=== PATIENT | female | born 1995 | race Caucasian/White ===

== ENCOUNTER 2017-04-10 02:35 | Inpatient (IN) | payer MEDICAID ==
[~2017-04-10] VITALS: Ht 162.6 cm; Wt 86.0 kg
[2017-04-10] VITALS (30 sets, daily range): BP systolic 92–124; BP diastolic 43–79; PULSE 65–114; RESP 18; TEMP 97.7–98.4; O2SAT 99–100
[~2017-04-10 02:35] MED LIST: IBUP600 PO; PERI8.6T PO; [UNRECOGNIZED DRUG - OTHER] PO
[2017-04-10] MEDS ORDERED: PREN1TAB30 PO (03:07)
[2017-04-10] MEDS: LACTATED RINGER'S 1000 ML INJ 1,000 ML IV SCH ×2 (03:18→04:25)
[2017-04-10] MEDS ORDERED: LACTATED RINGER'S 1000 ML INJ 1,000 ML IV PRN (03:20)
[2017-04-10] MEDS ORDERED: MINERAL OIL 10 ML VIAL TOPICAL PRN (03:30)
[2017-04-10] MEDS ORDERED: LIDOCAINE HCL 1% 50 ML VIAL I-DERMAL PRN (03:30)
[2017-04-10] MEDS ORDERED: OXYTOCIN 30 UNITS-500ML PREMIX 500 ML IV ONE (03:30)
[2017-04-10] MEDS ORDERED: CITRIC ACID-SODIUM CITRATE LIQ 30 ML UDC PO SCH (03:30)
[2017-04-10] MEDS ORDERED: SODIUM CHLORID 0.9% 500 ML INJ 500 ML IV PRN (03:30)
[2017-04-10] MEDS ORDERED: LIDOCAINE HCL 1% 50 ML VIAL INFIL PRN (03:30)
[2017-04-10 03:31] LABS: AUTOMATED NEUTROPHIL # 8.2 TH/MM3 (1.8-7.7); BASOPHIL % 0.4 % (0.0-2.0); EOSINOPHIL # 0.2 TH/MM3 (0-0.4); EOSINOPHIL % 1.8 % (0.0-4.0); HEMATOCRIT 28.4 % (35.0-46.0); HEMO FLAGS DIFF FINAL; LYMPH % 16.6 % (9.0-44.0); LYMPHOCYTE # 1.8 TH/MM3 (1.0-4.8); MEAN CELL VOLUME 78.8 FL (80.0-100.0); MEAN CORPUSCULAR HEMOGLOBIN 26.6 PG (27.0-34.0); MEAN CORPUSCULAR HGB CONC 33.8 % (32.0-36.0); MONO % 5.9 % (0.0-8.0); NEUT % 75.3 % (16.0-70.0); PLATELET COUNT 224 TH/MM3 (150-450); RED CELL DISTRIBUTION WIDTH 15.3 % (11.6-17.2); WHITE BLOOD COUNT 10.9 TH/MM3 (4.0-11.0)
[2017-04-10] MEDS ORDERED: fentaNYL 2MCG-BUPIV 0.125% INJ 100 ML ONE (03:34)
[2017-04-10] MEDS ORDERED: ePHEDrine/NS 25 MG/5 ML SYR ONE (03:34)
[2017-04-10 03:36] LABS: BLOOD, URINE SMALL (NEG); COMMENT (UR) CULTURE INDICATED; CULTURE IF INDICATED CULTURE INDICATED; GLUCOSE,URINE NEG (NEG); KETONE, URINE NEG (NEG); MUCUS URINE FEW /lpf (OCC); NITRITE,URINE NEG (NEG); PH, URINE 6.5 (5.0-8.5); SQUAMOUS EPITHELIAL CELL URINE 4 /hpf (0-5); URINE COLOR YELLOW (YELLW/STRAW)
[2017-04-10] MEDS ORDERED: SODIUM CHLOR 0.9% 1000 ML INJ 1,000 ML IV PRN (03:40)
--- NOTE | 2017-04-10 03:53 | HHI.HP ---
HPI Chief Complaint painful cxns Date Seen: Apr 10, 2017 Travel History International Travel<30 Days: No Contact w/Intl Traveler<30Days: No Known Affected Area: No History of Present Illness HPI Patient is a 21 y/o F presenting w/painful contractions. Follows w/ Dr. Coe at [facility] facing baster jumpbasting in [facility]. Plan was to be induced on Thursday at [facility]. However, states contractions were occurring 5 min apart, decided to come in. Has not had leakage of fluid or rupture of membranes, no vaginal bleeding. +FM. No complications or active problems being managed this . GBS negative. Last U/S estimated weight to be around 7lb 10 oz. Denies headache, visual changes, epigastric abdominal pain or lower extremity swelling. Weeks Gestation: 40 Para: 1 : 2 History Past Medical History Medical History: Denies Significant Hx Obstetric History Obstetric History 06/05/2015 - vaginal @41 weeks, induced. Baby weight was 7lb, 10 oz. Baby stayed an extra day due to "fast breathing." Past Surgical History Surgical History: No Previous Surgery Family History Family History: Negative Social History Alcohol Use: No Tobacco Use: No Substance Abuse: No Allergies-Medications (Allergen,Severity, Reaction): Coded Allergies: cephalexin (Unverified Allergy, Mild, Hives, 12/16/16) pt took from the - from reaction to hives. Home Meds Reported Medications Vit W/ Ferrous Fumara ( Vitamin 27-0.8 mg) 27 Mg Iron-800 Mcg Tab, 1 TAB-CAP PO DAILY 04/10/17 Review of Systems Except as stated in HPI: all other systems reviewed are Neg Physical Exam BP 128/66 HR 92 R 18 T 98.3 Narrative GENERAL: Well-nourished, well-developed patient. SKIN: Warm and dry. HEAD: Normocephalic and atraumatic. EYES: No scleral icterus. No injection or drainage. CARDIOVASCULAR: Regular rate. RESPIRATORY: No accessory muscle use. GENITOURINARY: Cervix: posterior Dilatation:7-8 Effacement: 90% Station: -2 Presentation: Vertex Membranes: intact Uterine Contractions: cxns q3-5 FHT's: Category: [-] Baseline: 140 Reactive: yes Variability: yes Decels: none EXTREMITIES: No cyanosis or edema. NEUROLOGICAL: Awake and alert. Motor and sensory grossly within normal limits. Five out of 5 muscle strength in all muscle groups. Normal speech. Caprini VTE Risk Assessment Caprini VTE Risk Assessment: No/Low Risk (score <= 1) Caprini Risk Assessment Model Point Value = 1 Point Value = 2 Point Value = 3 Point Value = 5 Age 41-60 Minor surgery BMI > 25 kg/m2 Swollen legs Varicose veins or History of unexplained or recurrent spontaneous Oral contraceptives or hormone replacement Sepsis (< 1 month) Serious lung disease, including pneumonia (< 1 month) Abnormal pulmonary function Acute myocardial infarction Congestive heart failure (< 1 month) History of inflammatory bowel disease Medical patient at bed rest Age 61-74 Arthroscopic surgery Major open surgery (> 45 min) Laparoscopic surgery (> 45 min) Malignancy Confined to bed (> 72 hours) Immobilizing plaster cast Central venous access Age >= 75 History of VTE Family history of VTE Factor V Leiden Prothrombin [id number] Lupus anticoagulant Anticardiolipin antibodies Elevated serum homocysteine Heparin-induced thrombocytopenia Other congenital or acquired thrombophilia Stroke (< 1 month) Elective arthroplasty Hip, pelvis, or leg fracture Acute spinal cord injury (< 1 month) Prophylaxis Regimen Total Risk Factor Score Risk Level Prophylaxis Regimen 0-1 Low Early ambulation 2 Moderate Order ONE of the following: *Sequential Compression Device (SCD) *Heparin 5000 units SQ BID 3-4 Higher Order ONE of the following medications: *Heparin 5000 units SQ TID *Enoxaparin/Lovenox 40 mg SQ daily (WT < 150 kg, CrCl > 30 mL/min) *Enoxaparin/Lovenox 30 mg SQ daily (WT < 150 kg, CrCl > 10-29 mL/min) *Enoxaparin/Lovenox 30 mg SQ BID (WT < 150 kg, CrCl > 30 mL/min) AND/OR *Sequential Compression Device (SCD) 5 or more Highest Order ONE of the following medications: *Heparin 5000 units SQ TID (Preferred with Epidurals) *Enoxaparin/Lovenox 40 mg SQ daily (WT < 150 kg, CrCl > 30 mL/min) *Enoxaparin/Lovenox 30 mg SQ daily (WT < 150 kg, CrCl > 10-29 mL/min) *Enoxaparin/Lovenox 30 mg SQ BID (WT < 150 kg, CrCl > 30 mL/min) AND *Sequential Compression Device (SCD) Data Data Vital Signs Reviewed: Yes Orders Orders Ob (2e) Additional Admit Info (04/10/17 02:52) Admit To Inpatient (04/10/17 ) Code Status (04/10/17 03:20) Vital Signs (Adult) .Per protocol (04/10/17 03:20) Activity Oob Ad Madeline (04/10/17 03:20) Heart (04/10/17 03:20) Amnioinfusion (04/10/17 03:20) Urinary Catheter Management .ONCE (04/10/17 03:20) Diet Liquid (04/10/17 Breakfast) Lactated Ringer's 1000 Ml Inj (Lr 1000 M (04/10/17 03:20) Lactated Ringer's 1000 Ml Inj (Lr 1000 M (04/10/17 03:20) Sodium Chlorid 0.9% 500 Ml Inj (Ns 500 M (04/10/17 03:30) Sodium Chlor 0.9% 1000 Ml Inj (Ns 1000 M (04/10/17 03:40) Lidocaine 1% Inj (50 Ml) (Xylocaine 1% I (04/10/17 03:30) Citric Acid-Sodium Citrate Liq (Bicitra (04/10/17 03:30) Fentanyl Inj (Fentanyl Inj) (04/10/17 03:30) Fentanyl Inj (Fentanyl Inj) (04/10/17 03:30) Complete Blood Count With Diff (04/10/17 03:20) Hold Clot (04/10/17 03:20) Abo/Rh Blood Type (04/10/17 03:20) Urinalysis - C+S If Indicated (04/10/17 03:20) Drug Screen, Random Urine (04/10/17 03:20) Type And Screen (04/10/17 03:20) Resp Oxygen Non Rebreathe Mask (04/10/17 ) ^ Epidural / Intrathecal Infus (04/10/17 03:20) Oxytocin 30 Units-500ml Premix (Pitocin (04/10/17 03:30) Lidocaine 1% Inj (50 Ml) (Xylocaine 1% I (04/10/17 03:30) Light Mineral Oil (Muri-Lube Oil) (04/10/17 03:30) Inpatient Certification (04/10/17 ) Specimen To Be Collected PRN (04/10/17 03:20) Specimen To Be Collected PRN (04/10/17 03:20) Group B Strep: Negative Labs Laboratory Tests Test 04/10/17 02:55 04/10/17 03:19 Assessment/Plan Problem List: (1) Uterine contractions during ICD Codes: O62.2 - Other uterine inertia (2) 40 weeks gestation of ICD Codes: Z3A.40 - 40 weeks gestation of Assessment and Plan 21 y/o @ 40/5 weeks admitted for vaginal delivery. GBS negative. Remaining labs not available, sent request to [facility] for labs. 8 cm dilated, 90%, categ 1 FHT, no ROM. - epidural ordered - recheck w/increased pain/pressure Discussed w/Dr. Medellin and Dr. Leonardo Philippe,Paige Rodriguez MD R1 Apr 10, 2017 03:53
[2017-04-10] MEDS ORDERED: NO SYSTEM NARCOTICS PRN (04:30)
[2017-04-10] MEDS ORDERED: ePHEDrine/NS 25 MG/5 ML SYR IV PUSH PRN (04:30)
[2017-04-10] MEDS ORDERED: fentaNYL 2MCG-BUPIV 0.125% 100 ML EPIDURAL SCH (04:30)
[2017-04-10] MEDS ORDERED: DO NOT ADMINISTER ANTICOAGULANTS PRN (04:30)
--- NOTE | 2017-04-10 05:05 | PD.LABORPN ---
Subjective Subjective Epidural @0330. Patient feeling well. Objective Vital Signs Vital Signs Date Time Temp Pulse Resp B/P (MAP) Pulse Ox O2 Delivery O2 Flow Rate FiO2 04/10/17 04:31 80 04/10/17 04:31 105/53 (70) 04/10/17 04:25 83 106/59 (75) 04/10/17 04:20 79 104/54 (71) 04/10/17 04:15 86 04/10/17 04:15 82 95/62 (73) 04/10/17 04:11 76 96/44 (61) 04/10/17 04:10 90 04/10/17 04:06 18 04/10/17 04:06 93 122/58 (79) 04/10/17 04:05 100 04/10/17 04:05 101 04/10/17 04:04 102 92/43 (59) 04/10/17 04:02 114 92/53 (66) 04/10/17 04:00 96 04/10/17 04:00 100 04/10/17 03:55 100 04/10/17 03:55 98 124/74 (91) 04/10/17 03:55 95 04/10/17 03:51 90 115/79 (91) 04/10/17 03:50 100 04/10/17 03:50 98 04/10/17 03:45 100 04/10/17 03:45 103 04/10/17 03:45 104 109/61 (77) Objective Checked @0430 Pelvic Exam: Cervix: Mid Dilatation: 8 cm Effacement: 90% Station: 0 Presentation: vertex Membranes: [intact] Uterine Contractions: q3 min, yes FHT's: Category:1 Baseline: 155 Reactive: yes Variability: yes Decels: no Weeks Gestation: 40 Active labor start date: Apr 10, 2017 Assessment/Plan Problem List: (1) Uterine contractions during ICD Codes: O62.2 - Other uterine inertia (2) 40 weeks gestation of ICD Codes: Z3A.40 - 40 weeks gestation of Assessment and Plan Con't to monitor Paige Philippe MD R1 Apr 10, 2017 05:05
--- NOTE | 2017-04-10 06:57 | PD.OB.DELI ---
Weeks gestation: 40 Pt started active labor?: Yes Active labor start date: Apr 10, 2017 Medical induction of labor?: No Artificial rupture of membrane: No Anesthesia: Epidural Episiotomy: None Vaginal Delivery: Normal Presentation: Occiput anterior Nuchal Cord: None Delayed cord clamping (45 sec): Yes : Male Delivery date: Apr 10, 2017 Delivery time: 06:24 One Minute : 8 Five Minute : 9 Weight: 3795g Placenta: Spontaneous delivery, Intact Repair: Vicryl running Estimated blood loss: 250cc Eleanor Patterson MD Apr 10, 2017 06:57
[2017-04-10] MEDS ORDERED: WITCH HAZEL 50%/GLYCERIN 12.5% 40 PAD JAR TOPICAL PRN (07:00)
[2017-04-10] MEDS ORDERED: ALUMINUM/MAGNESIUM/SIMETH 30 ML CUP PO PRN (07:00)
[2017-04-10] MEDS ORDERED: BENZOCAINE 20% TOPICAL SPRAY 60 ML CAN TOPICAL PRN (07:00)
[2017-04-10] MEDS ORDERED: ONDANSETRON ODT 4 MG TAB PO PRN (07:00)
[2017-04-10] MEDS ORDERED: DOCUSATE SODIUM 50 MG/SENNA 8.6 MG TAB PO PRN (07:00)
[2017-04-10] MEDS ORDERED: IBUPROFEN 800 MG TAB PO PRN (07:00)
[2017-04-10] MEDS ORDERED: OXYTOCIN 30 UNITS-500ML PREMIX 500 ML IV SCH (07:00)
[2017-04-10] MEDS ORDERED: ZOLPIDEM TARTRATE 5 MG TAB PO PRN (07:00)
[2017-04-10] MEDS ORDERED: ACETAMINOPHEN 325 MG TAB PO PRN (07:00)
[2017-04-10] MEDS ORDERED: SODIUM CHLORIDE 0.9% FLUSH 10 ML FLUSH IV FLUSH PRN (07:00)
[2017-04-10] MEDS ORDERED: SODIUM CHLORIDE 0.9% FLUSH 10 ML FLUSH IV FLUSH SCH (09:00)
[2017-04-10] MEDS ORDERED: DIPHTH/TETANUS/ACEL PERTUSSIS (BOOSTER) 0.5 ML VIAL/PFS IM ONE (16:00)
[2017-04-10] MEDS ORDERED: MEASLES, MUMPS, RUBELLA VACCINE 0.5 ML VIAL SQ ONE (16:00)
[2017-04-11] MEDS: LACTATED RINGER'S 1000 ML INJ 1,000 ML IV SCH (03:20)
[2017-04-11 08:00] VITALS: BP 115/56; PULSE 80; RESP 16; TEMP 98
--- NOTE | 2017-04-11 08:54 | HHI.OB ---
Subjective Post Day: 1 Remarks Patient is a 21-year-old delivered at 40 weeks and 5 days. Patient is day 1 after . Patient's pain is well-controlled. Patient reports eating and drinking without any nausea or vomiting. Patient reports minimal bleeding. Patient has passed gas but no bowel movements. Patient is walking without lower extremity pain or shortness of breath. Patient reports desire for contraception through her outpatient provider and both formula- and breast- feeding. Objective Vitals/I&O Vital Signs Date Time Temp Pulse Resp B/P (MAP) Pulse Ox O2 Delivery O2 Flow Rate FiO2 04/11/17 08:00 98.0 80 16 115/56 (75) Objective Remarks GENERAL: Well-nourished, well-developed patient. CARDIOVASCULAR: Regular rate and rhythm without murmurs, gallops, or rubs. RESPIRATORY: Breath sounds equal bilaterally. No accessory muscle use. ABDOMEN/GI: Abdomen soft, non-tender. Fundus: Firm, non-tender at umbilicus. GENITOURINARY: Light to moderate bleeding. EXTREMITIES: No cyanosis or edema, non-tender, without signs of DVT. Medications and IVs Current Medications Medications (Trade) Dose Ordered Sig/Kathleen Route Start Time Stop Time Status Last Admin Lactated Ringer's 1,000 ml @ 125 mls/hr Q8H IV 04/10/17 03:20 04/10/17 04:25 Lactated Ringer's 1,000 ml @ 3,000 mls/hr Q20M PRN IV 04/10/17 03:20 Sodium Chloride 500 ml @ 1,000 mls/hr ONCE PRN IV 04/10/17 03:30 04/13/17 03:29 Sodium Chloride 1,000 ml @ 100 mls/hr Q10H PRN IV 04/10/17 03:40 (Xylocaine 1% Inj (50 ml)) 0.1 ml UNSCH X1 PRN I-DERMAL 04/10/17 03:30 04/13/17 03:29 (Bicitra Liq) 30 ml SHIRT CREASER PO 04/10/17 03:30 04/14/17 03:29 (fentaNYL INJ) 50 mcg Q1H PRN IV PUSH 04/10/17 03:30 (fentaNYL INJ) 100 mcg Q1H PRN IV PUSH 04/10/17 03:30 (Xylocaine 1% Inj (50 ml)) 10 ml UNSCH X1 PRN INFIL 04/10/17 03:30 04/12/17 03:29 (Muri-Lube Oil) 10 ml UNSCH PRN TOPICAL 04/10/17 03:30 Fentanyl/ Bupivacaine HCl 100 ml @ 0 mls/hr TITRATE EPIDURAL 04/10/17 04:30 04/10/17 04:56 (NS Flush) 2 ml BID IV FLUSH 04/10/17 09:00 (NS Flush) 2 ml UNSCH PRN IV FLUSH 04/10/17 07:00 (Tylenol) 650 mg Q4H PRN PO 04/10/17 07:00 (Motrin) 800 mg Q8H PRN PO 04/10/17 07:00 (Americaine 20% Top Spr) 1 spray Q4H PRN TOPICAL 04/10/17 07:00 (Tucks Pads) 1 applic QID PRN TOPICAL 04/10/17 07:00 (Zari-Colace) 2 tab Q12H PRN PO 04/10/17 07:00 (Ambien) 5 mg HS PRN PO 04/10/17 07:00 (Mag-Al Plus Susp Liq) 15 ml Q8H PRN PO 04/10/17 07:00 (Zofran Odt) 4 mg Q6H PRN PO 04/10/17 07:00 Assessment/Plan Problem List: (1) 40 weeks gestation of ICD Codes: Z3A.40 - 40 weeks gestation of (2) Vaginal delivery ICD Codes: O80 - Encounter for full-term uncomplicated delivery Status: Acute Assessment and Plan 21 y/o @ 40/5 weeks admitted for vaginal delivery. GBS negative. Patient is day 1 after . Patient was counseled to do 6 weeks of pelvic rest. Patient was counseled to follow up in 6 weeks. Patient requested follow- up and contraception through her outpatient provider. --AF VSS --Continue routine care --Motrin and Percocet when necessary for pain --Encourage OOB --Pelvic rest for 6 weeks will need follow-up appointment at that time. --Contraception: Through her outpatient provider --Anticipate discharge today or tomorrow D/w Dr. Nusrat Del Angel,Harley Almanza MD R2 Apr 11, 2017 08:54
[2017-04-11] MEDS ORDERED: IBUP1TAB7 PO (10:03)
--- NOTE | 2017-04-11 10:03 | HHI.DCPOC ---
Discharge Care Plan Diagnosis: (1) Vaginal delivery Report Symptoms to Your Doctor -Temperature above 100.5 degrees -Redness, of incision or excessive or foul smelling drainage -Unusual pain or calf pain -Increased vaginal bleeding -Painful or difficulty urinating -Feelings of extreme sadness or anxiety after 2 weeks Goals to Promote Your Health * To prevent worsening of your condition and complications, please follow-up with your doctor within 6 weeks. * To maintain your health at the optimal level, please follow medical recommendations. Directions to Meet Your Goals Take your medications as prescribed Follow your dietary instruction Follow activity as directed Ensure plenty of rest for recovery Drink fluids for hydration Keep your appointments as scheduled Take your immunizations and boosters as scheduled If your symptoms worsen call your PCP, if no PCP go to Urgent Care Center or Emergency Room Smoking is Dangerous to Your Health. Avoid second hand smoke Call the 24-hour crisis hotline for domestic abuse at Harley Del Angel MD R2 Apr 11, 2017 10:03
== END 2017-04-11 15:42 | disposition home or self-care (01) | DRG 775 ==
LOC: HOBED 02:35 → H2EB 02:52 → H1EA 08:17
PROVIDERS: ADMIT Obstetrics & Gynecology; ATTEND Obstetrics & Gynecology
PROC: 10E0XZZ Delivery of Products of Conception, External Approach (ICD-10-PCS; principal; 2017-04-10)
PROC: 00HU33Z Insertion of Infusion Device into Spinal Canal, Percutaneous Approach (ICD-10-PCS; 2017-04-10)
PROC: 3E0R3BZ Introduction of Anesthetic Agent into Spinal Canal, Percutaneous Approach (ICD-10-PCS; 2017-04-10)
DX: O48.0 Post-term pregnancy (principal); Z37.0 Single live birth; Z3A.40 40 weeks gestation of pregnancy
CPT/HCPCS: 80307; 81001; 85025; 86703; 86850; 86900; 86901; 87086; J2590; J7120

== ENCOUNTER 2017-09-06 07:06 | Emergency (ER) | payer MEDICAID ==
[~2017-09-06] VITALS: Ht 162.6 cm; Wt 72.5 kg
[~2017-09-06 07:06] MED LIST changes: +IBUP1TAB7 PO; -IBUP600 PO; -PERI8.6T PO; +PREN1TAB30 PO; -[UNRECOGNIZED DRUG - OTHER] PO
[2017-09-06 07:24] VITALS: BP 141/63; PULSE 106; RESP 18; TEMP 98.9; O2SAT 98
[2017-09-06] MEDS ORDERED: SULF1SOL4 RIGHT EYE (08:09)
--- NOTE | 2017-09-06 08:09 | PD ---
HPI Chief Complaint: Eye Problems/Injury Time Seen by Provider: 08:06 Travel History International Travel<30 days: No Contact w/Intl Traveler<30days: No Traveled to known affect area: No History of Present Illness HPI 21-year-old female patient presents to the ER today, states that she is started having a right I watering, redness, thinks that she has pinkeye. She states that she had brought her son here a few days ago and he had pinkeye. She denies any fevers, sore throat, or any other issues. Modifying Factors: None Associated Signs & Symptoms: Right eye redness and irritation Risk Factors: Son with pinkeye PFSH Past Medical History ?: Not LMP: 08/21/17 Social History Alcohol Use: No Tobacco Use: No Substance Use: No Allergies-Medications (Allergen,Severity, Reaction): Coded Allergies: cephalexin (Unverified Allergy, Mild, Hives, 09/06/17) pt took from the - from reaction to hives. Reported Meds & Prescriptions Reported Meds & Active Scripts Active Review of Systems Except as stated in HPI: all other systems reviewed are Neg Physical Exam Narrative GENERAL: Well-nourished, well-developed young female patient in no acute distress. SKIN: Focused skin assessment warm/dry. HEAD: Normocephalic. EYES: No scleral icterus. Notable for right conjunctival injection, small amount of clear drainage and matting. Extraocular movements are intact. Pupils are equal, round, reactive to light bilaterally. ENT: Mucosa pink and moist. No erythema or exudates. No uvular edema. No uvular , palatal, or tonsillar deviation. Airway patent. NECK: Supple, trachea midline. No JVD or lymphadenopathy. CARDIOVASCULAR: Regular rate and rhythm without murmurs, gallops, or rubs. RESPIRATORY: Breath sounds equal bilaterally. No accessory muscle use. GASTROINTESTINAL: Abdomen soft, non-tender, nondistended. MUSCULOSKELETAL: No cyanosis, or edema. BACK: Nontender without obvious deformity. No CVA tenderness. Data Data Last Documented VS Vital Signs Date Time Temp Pulse Resp B/P (MAP) Pulse Ox O2 Delivery O2 Flow Rate FiO2 09/06/17 07:24 98.9 106 18 141/63 (89) 98 MDM Medical Decision Making Medical Screen Exam Complete: Yes Emergency Medical Condition: Yes Medical Record Reviewed: Yes Differential Diagnosis Conjunctivitis Narrative Course Considering history of sick contact, my plan would be to treat her conjunctivitis. Return for new issues as needed. The plan was discussed with her and she states understanding. Diagnosis Primary Impression: Conjunctivitis Med/Other Pt SpecificInfo: Prescription(s) given Scripts Sulfacetamide Opth Drops (Bleph-10 Opth Drops) 10 % Soln 1 DROP RIGHT EYE Q2H for Infection, #1 BOTTLE 0 Refills Prov: Ildefonso Cordero MD 09/06/17 Disposition: 01 DISCHARGE HOME Condition: Stable Ildefonso Cordero MD September 06, 2017 08:09
== END 2017-09-06 08:37 | disposition home or self-care (01) ==
LOC: NEPE 07:06
DX: H10.9 Unspecified conjunctivitis (principal)
CPT/HCPCS: 99283